=== PATIENT | male | born 1975 | race Caucasian/White ===

== ENCOUNTER 2019-10-05 12:14 | Emergency (ER) | payer SELFPAY ==
[~2019-10-05] VITALS: Ht 170.2 cm; Wt 81.6 kg
[2019-10-05 12:14] VITALS: BP 73/40
[2019-10-05] MEDS ORDERED: NALOXONE PFS 2 MG/2 ML SYR IVP ONE (12:20)
[2019-10-05] MEDS ORDERED: ETOMIDATE 20 MG/10 ML VIAL IVP ONE (12:20)
[2019-10-05] MEDS ORDERED: ROCURONIUM 50 MG/5 ML VIAL IV ONE (12:20)
[2019-10-05] MEDS ORDERED: PRIMARY CRASH CART TRAY MC ONE (12:23)
[2019-10-05] MEDS ORDERED: PROPOFOL 1000 MG/100 ML PREMIX 100 ML IV ONE ×2 (12:24→12:25)
[2019-10-05] MEDS ORDERED: NOREPINEPHRINE 4 MG/4 ML VIAL IV ONE (12:35)
[2019-10-05] MEDS ORDERED: VANCOMYCIN 1,000 MG in DEXTROSE 5% 250 ML IV ONE (12:55)
[2019-10-05] MEDS ORDERED: PIPERACILLIN/TAZOBACTAM 3.375 GM in DEXTROSE 5% 50 ML IV ONE (12:55)
[2019-10-05] MEDS ORDERED: LORazepam 2 MG/ML VIAL ONE (13:46)
[2019-10-05] MEDS ORDERED: LORazepam 2 MG/ML VIAL IVP ONE ×2 (13:50→14:05)
[2019-10-05 13:51] LABS: HEMATOCRIT 57.5 % (36-52); HEMOGLOBIN 18.8 g/dL (12.0-18.0); MEAN CORPUSCULAR HEMOGLOBIN 29 pg (27-31); MEAN CORPUSCULAR HGB CONC 33 g/dL (33-37); MEAN CORPUSCULAR VOLUME 90.2 fL (80-94); PLATELET COUNT (AUTO) 203 K/uL (140-450); RED BLOOD CELL COUNT(AUTO) 6.38 MIL/uL (4.20-6.10); RED CELL DISTRIBUTION WIDTH 14.5 % (11.6-13.7); WHITE BLOOD COUNT (AUTO) 14.3 K/uL (4.8-10.8)
[2019-10-05 13:54] LABS: ALBUMIN 4.6 g/dL (3.4-5.0); ASPARTATE AMINOTRANSFERASE 114 U/L (15-37); CARBON DIOXIDE 22.4 mmol/L (21-32); CHLORIDE 106 mmol/L (98-107); CREATININE 3.7 mg/dL (0.6-1.3); GFR ARICAN-AMERICAN 23 mL/min (>90); GLUCOSE 89 mg/dL (74-106); POTASSIUM 5.4 mmol/L (3.5-5.1); SODIUM SERUM 144 mmol/L (136-145); TOTAL BILIRUBIN 2.2 mg/dL (0.0-1.0); UREA NITROGEN, BLOOD 38 mg/dL (7-18)
[2019-10-05 14:01] LABS: LYMPHOCYTES % (MANUAL) 12 % (20-46); MONOCYTES % (MANUAL) 10 % (5-12)
[2019-10-05 14:05] LABS: ACETAMINOPHEN < 0.5 ug/ml (10-30); SALICYLATE < 2.8 mg/dL (2.8-20.0)
[2019-10-05 14:20] VITALS: BP 76/46
[2019-10-05 14:30] LABS: CKMB RELATIVE INDEX 0.5 (0.0-2.5); CREATINE KINASE MB 18.4 ng/mL (0-3.6)
[2019-10-05] MEDS ORDERED: EPINEPHrine PFS 0.1 MG/ML SYR IVP ONE (14:45)
[2019-10-05] MEDS ORDERED: NOREPINEPHRINE 4 MG in DEXTROSE 5% 250 ML IV ONE (16:30)
[2019-10-06] MEDS ORDERED: ATROPINE 0.5 MG/5 ML SYR IVP ONE (14:28)
== END 2019-10-05 14:52 | disposition expired ==
LOC: EEVIPCON 12:14 → EDBD 12:14 → MED 12:14
DX: Z03.818 Encounter for observation for suspected exposure to other biological agents ruled out (principal); A41.9 Sepsis, unspecified organism; I46.8 Cardiac arrest due to other underlying condition; K55.059 Acute (reversible) ischemia of intestine, part and extent unspecified; J96.01 Acute respiratory failure with hypoxia
CPT/HCPCS: 31500; 36415; 70450; 71045; 71250; 72125; 74176; 80053; 82550; 82553; 83605; 84484; 85025; 85379; 86140; 87635; 96365; 96366; 96368; 96375; 96376; 99291; 99292; G0480; G0482; J0171; J2060; J2704; J3490; Q0092; J7060